=== PATIENT | female | born 1960 | race Caucasian/White ===

== ENCOUNTER 2023-08-09 11:13 | Emergency (ER) | payer OTHER ==
[~2023-08-09] VITALS: Ht 162.6 cm; Wt 77.1 kg
[2023-08-09 11:21] VITALS: O2SAT 98
[2023-08-09] MEDS: EPINEPHRINE 1:1000 1 MG/ML AMP IM ONE (11:54)
[2023-08-09] MEDS: FAMOTIDINE 20MG/2ML VIAL IV ONE (12:00)
[2023-08-09] MEDS: METHYLPREDNISOLONE SOD SUCC 125MG/2ML (ACT-O-VIAL) IV ONE (12:00)
[2023-08-09] MEDS: DIPHENHYDRAMINE 50MG/ML VIAL IV ONE (12:00)
[2023-08-09 12:03] LABS: BASOPHILS % 0.4 % (0.0-2.0); EOSINOPHILS % 5.4 % (0.0-5.0); HEMOGLOBIN. 12.5 g/dL (12.0-16.0); LYMPHOCYTES % 19.4 % (20.0-50.0); MEAN CORPUSCULAR HEMOGLOBIN 30.9 pg (28.0-32.0); MEAN CORPUSCULAR HGB CONC 34.6 g/dL (31.0-37.0); MEAN CORPUSCULAR VOLUME 89.2 fL (81.0-99.0); MEAN PLATELET VOLUME 7.9 fl (7.4-10.4); NEUTROPHILS % 67.8 % (40.0-76.0); PLATELET 347 x1000/uL (130-400); RED BLOOD CELL COUNT 4.04 mill/uL (4.2-5.4); RED CELL DISTRIBUTION WIDTH 13.8 % (11.6-14.6); WHITE BLOOD COUNT 9.4 x1000/uL (4.5-11.0)
[2023-08-09 12:08] LABS: CHLORIDE 106 mEq/L (98-107); POTASSIUM 3.7 mEq/L (3.5-5.1); SODIUM 141 mEq/L (136-145)
[2023-08-09 12:09] LABS: CALCIUM 10.2 mg/dL (8.7-10.4); CARBON DIOXIDE 27 mEq/L (21-32)
[2023-08-09 12:14] LABS: CREATININE 0.6 mg/dL (0.6-1.0); GLUCOSE 90 mg/dL (70-105); UREA NITROGEN BLOOD 12 mg/dL (9-23)
[2023-08-09 20:39] VITALS: BP 143/68; PULSE 76; RESP 14; TEMP 98.1
== END 2023-08-09 22:44 | disposition left against medical advice (07) ==
LOC: ER 11:13 → EDBEDREQTM 16:10 → EDBEDREQ 16:10 → ER 22:44 → CANBEDREQ 22:57
DX: T78.3XXA Angioneurotic edema, initial encounter (principal); J45.909 Unspecified asthma, uncomplicated; T78.49XA Other allergy, initial encounter; X58.XXXA Exposure to other specified factors, initial encounter
CPT/HCPCS: 80048; 85025; 36415; 96372; 96374; 96375; 99284; J1200; J3490 ×2; J2930; Z7610; J2919